=== PATIENT | female | born 1970 | race Caucasian/White ===

== ENCOUNTER 2016-07-18 11:39 | Emergency (ER) | payer MEDICAID ==
[~2016-07-18] VITALS: Ht 144.8 cm; Wt 49.9 kg
[2016-07-18 11:45] VITALS: BP 123/83
--- NOTE | 2016-07-18 11:54 | NUR ---
P TO BED 5 AT THIS TIME.
--- NOTE | 2016-07-18 12:01 | NUR ---
PT PRESENTS TO ER W/C/O RIGHT SIDED RIB PAIN.PT STATES IT STARTED 3 WEEKS AGO. PAIN SCALE OF 7/10. PT STATES PAIN IS AGGRAVATED BY BREATHING DEEPLY AND MOVEMENTPT TOOK NORCO LAST NIGHT AND IT RELIEVED THE PAIN.DENIES SOB. PT C/O OF HEADCAHE AT THIS TIME.AAOX4.NO ACUTE DISTRESS NOTED AT THIS TIME.SAFETY PRECAUTION INSTITUTED.ALL MONITORS PLACED IN. MD AWARE OF PT'S CONDITION.
--- NOTE | 2016-07-18 12:05 | NUR ---
PA AT BEDSIDE
--- NOTE | 2016-07-18 12:08 | NUR ---
PT WENT TO XRAY ACCOMPANIED BY STATION AGENT
--- NOTE | 2016-07-18 12:09 | NUR ---
URINE DIPSTICK RESULT RELAYED TO DR URIOSTEGUI
--- NOTE | 2016-07-18 12:39 | NUR ---
PT IN BED TALKING IN THE PHONE, NO SOB NOTED, PT AAO.
--- NOTE | 2016-07-18 13:13 | NUR ---
PT LYING ON BE COMFORTABLY.NO ACUTE DISTRESS NOTED AT THIS TIME.WILL CONTINUE TO MONITOR PT.
--- NOTE | 2016-07-18 13:33 | NUR ---
Patient being evaluated by DR OSUNA at bedside.
[2016-07-18] MEDS ORDERED: KETOROLAC 60 MG/2 ML VIAL IM ONE (13:40)
--- NOTE | 2016-07-18 14:08 | NUR ---
Patient discharged with v/s stable. Written and verbal after care instructions given and explained. Patient alert, oriented and verbalized understanding of instructions. Ambulatory with steady gait. All questions addressed prior to discharge. ID band removed. Patient advised to follow up with PMD. Rx of NORCO given. Patient educated on indication of medication including possible reaction and side effects.ADVISED PT TO AVOID STRENOUS ACTIVITIES AND APPLY ICE PACKS FOR 1TO 2 DAYS. Opportunity to ask questions provided and answered.
[2016-07-18 14:10] VITALS: BP 120/84
== END 2016-07-18 14:08 | disposition home or self-care (01) ==
LOC: MED 11:39
DX: S20.211A Contusion of right front wall of thorax, initial encounter (principal); F17.200 Nicotine dependence, unspecified, uncomplicated; X58.XXXA Exposure to other specified factors, initial encounter; Y93.89 Activity, other specified; Y92.89 Other specified places as the place of occurrence of the external cause; Y99.8 Other external cause status
CPT/HCPCS: 71101; 81002; 81025; 96372; 99284; J1885

== ENCOUNTER 2019-11-18 09:15 | Emergency (ER) | payer SELFPAY ==
[~2019-11-18] VITALS: Ht 149.9 cm; Wt 69.4 kg
[2019-11-18 09:20] VITALS: BP 130/69
--- NOTE | 2019-11-18 09:23 | NUR ---
PT AMBULATED TO BED 11
--- NOTE | 2019-11-18 09:33 | NUR ---
PT C/O RT SHOULDER PAIN S/P FALL X 3 WKS AGO WITH INCREASING PAIN. NO ERYTHEMA, EDEMA, OR DEFORMITY NOTICED ON PT'S RT SHOULDER. REDUCED ROM OF RT SHOULDER. PT STATES THE PAIN INCREASED AT NIGHT, AND SHE HAS BEEN TAKING IBUPROFEN AND MOTRIN WITH SOME RELIEF. DENIES N/V/D; SKIN IS PINK/WARM/DRY; AAOX4 WITH EVEN AND STEADY GAIT; LUNGS CLEAR BL; HR EVEN AND REGULAR; PT DENIES ANY FEVER, CP, SOB, OR COUGH AT THIS TIME; PATIENT STATES PAIN OF 6/10 AT THIS TIME; VSS; PATIENT POSITIONED FOR COMFORT; HOB ELEVATED; BEDRAILS UP X1; BED DOWN. ER MD MADE AWARE OF PT STATUS.
--- NOTE | 2019-11-18 10:20 | NUR ---
PT RIGHT ARM PLACED IN SLING. SLING ADJUSTED TO PT HIEGHT AND SIZE. RN NOTIFIED.
[2019-11-18 10:36] VITALS: BP 125/65
--- NOTE | 2019-11-18 10:36 | NUR ---
Patient discharged with v/s stable. Written and verbal after care instructions given and explained. Patient alert, oriented and verbalized understanding of instructions. Ambulatory with steady gait. All questions addressed prior to discharge. ID band removed. Patient advised to follow up with PMD. Rx of Roe given. Patient educated on indication of medication including possible reaction and side effects. Opportunity to ask questions provided and answered.
== END 2019-11-18 10:36 | disposition home or self-care (01) ==
LOC: MED 09:15
DX: M25.511 Pain in right shoulder (principal); Z88.5 Allergy status to narcotic agent; W18.39XA Other fall on same level, initial encounter; Y93.89 Activity, other specified; Y92.89 Other specified places as the place of occurrence of the external cause; Y99.8 Other external cause status
CPT/HCPCS: 73030; 99283; Q0092